=== PATIENT | female | born 1940 | race Hispanic/Latino ===

== ENCOUNTER 2017-01-09 12:57 | Inpatient (IN) | payer MEDICARE, OTHER ==
[2017-01-09 13:07] VITALS: BMI 24.0
--- NOTE | 2017-01-09 13:43 | CT ---
PROCEDURE: CT HEAD WITHOUT CONTRAST. HISTORY: Code Stroke COMPARISON: None available. TECHNIQUE: Axial computed tomography images were obtained through the head/brain without intravenous contrast. Radiation dose: Total exam DLP = 774.23 mGy-cm. This CT exam was performed using one or more of the following dose reduction techniques: Automated exposure control, adjustment of the mA and/or kV according to patient size, and/or use of iterative reconstruction technique. FINDINGS: HEMORRHAGE: No intracranial hemorrhage. BRAIN: No mass effect or edema. Atherosclerotic calcifications. Scattered periventricular and subcortical white matter hypodensities, which are nonspecific, but often seen with chronic microvascular ischemic disease. Please note that MRI with diffusion imaging is more sensitive in the detection of acute ischemic event. VENTRICLES: No hydrocephalus. CALVARIUM: Unremarkable. PARANASAL SINUSES: Unremarkable as visualized. No significant inflammatory changes. MASTOID AIR CELLS: Unremarkable as visualized. No inflammatory changes. OTHER FINDINGS: None. IMPRESSION: Scattered periventricular and subcortical white matter hypodensities, which are nonspecific, but often seen with chronic microvascular ischemic disease. Findings discussed with Dr. Mcclellan on 01/09/17 at 1:37 p.m.
--- NOTE | 2017-01-09 13:51 | ED PDOC ---
Arrival/HPI - General Chief Complaint: Syncope Time Seen by Provider: 01/09/17 13:06 Historian: Patient - Critical Care Critical Care Minutes: 30 minutes - History of Present Illness Narrative History of Present Illness (Text): 01/09/17 13:06 A 76 year old female, whose past medical history includes multiple syncopes, was brought in by EMS presents to the emergency department complaining of syncopal episode starting yesterday evening. Patient reports yesterday she experiences left-sided body numbness, which resolved spontaneously. Same episode occurred 07:30 this morning. Patient mentions approximately 10:30 experiencing left leg weakness and afterwards passed out. She states experiencing syncopal episodes x 3 today. Patient denies of any chest pain, shortness of breath, or any other complaints. No PMD Time/Duration: Other (began yesterday evening) Symptom Onset: Sudden Symptom Course: Resolved Context: Home Past Medical History - Provider Review Nursing Documentation Reviewed: Yes - Infectious Disease Hx of Infectious Diseases: None - Cardiac Hx Hypertension: Yes Other/Comment: Aortic tumor - Pulmonary Hx Lung Cancer: Yes - Neurological Hx Syncope: Yes - Psychiatric Hx Substance Use: No Family/Social History - Physician Review Nursing Documentation Reviewed: Yes Family/Social History: No Known Family HX Smoking Status: Never Smoked Hx Alcohol Use: No Hx Substance Use: No Allergies/Home Meds Allergies/Adverse Reactions: Allergies No Known Allergies Allergy (Verified 01/09/17 13:06) Home Medications: Home Meds Medication Instructions Recorded Confirmed Losartan [Cozaar] 1 tab PO DAILY 01/09/17 01/09/17 Review of Systems - Physician Review All systems were reviewed & negative as marked: Yes - Review of Systems Constitutional: absent: Fevers, Night Sweats Respiratory: absent: SOB Cardiovascular: Syncope (3 x today). absent: Chest Pain Gastrointestinal: absent: Abdominal Pain, Diarrhea, Nausea, Vomiting Neurological: Focal Weakness (left leg weakness), Other (left side body numbness yesterday). absent: Headache Physical Exam Vital Signs Reviewed: Yes Vital Signs Temp Pulse Resp BP Pulse Ox 01/09/17 18:25 98.1 F 92 H 17 137/80 99 01/09/17 17:17 97.8 F 93 H 16 156/78 H 99 01/09/17 16:03 97.7 F 99 H 18 163/93 H 98 01/09/17 15:38 97.7 F 97 H 17 150/85 99 01/09/17 14:46 97.8 F 78 17 151/81 H 100 01/09/17 14:17 68 19 154/84 H 01/09/17 13:15 97.7 F 65 17 163/56 H 100 Temperature: Afebrile Blood Pressure: Hypertensive Pulse: Regular Respiratory Rate: Normal Appearance: Positive for: Well-Appearing Pain Distress: None Mental Status: Positive for: Alert and Oriented X 3 Finger Stick Blood Glucose: 120 - Systems Exam Head: Present: Atraumatic, Normocephalic Pupils: Present: PERRL Extroacular Muscles: Present: EOMI Conjunctiva: Present: Normal Mouth: Present: Moist Mucous Membranes Neck: Present: Normal Range of Motion Respiratory/Chest: Present: Clear to Auscultation, Good Air Exchange. No: Respiratory Distress, Accessory Muscle Use Cardiovascular: Present: Regular Rate and Rhythm, Normal S1, S2. No: Murmurs Abdomen: Present: Normal Bowel Sounds. No: Tenderness, Distention, Peritoneal Signs Back: Present: Normal Inspection Upper Extremity: Present: Normal Inspection. No: Cyanosis, Edema Lower Extremity: Present: Normal Inspection. No: Edema Neurological: Present: GCS=15, CN II-XII Intact, Speech Normal, Motor Func Grossly Intact, Normal Sensory Function, Normal Cerebellar Funct, Norm Deep Tendon Reflexes, Gait Normal, Memory Normal, Normal 2Pt Descrimination Skin: Present: Warm, Dry, Normal Color. No: Rashes Psychiatric: Present: Alert, Oriented x 3, Normal Insight, Normal Concentration Medical Decision Making ED Course and Treatment: 01/09/17 13:13 Impression: 76 year old female with syncopal episode. Differential Diagnosis included but are not limited to: Plan: -- EKG -- Head CT -- Head/Neck CTA -- Chest X-ray -- Labs -- Reassess and disposition Progress Notes: 01/09/2017 13:14 Code stroke called for patient. 01/09/2017 13:[address] Hernandez and has requested for CTA head and neck. 01/09/2017 13:23 Patient's blood pressure currently 163/56 01/09/2017 13:[address] FINDINGS: HEMORRHAGE: No intracranial hemorrhage. BRAIN: No mass effect or edema. Atherosclerotic calcifications. Scattered periventricular and subcortical white matter hypodensities, which are nonspecific, but often seen with chronic microvascular ischemic disease. Please note that MRI with diffusion imaging is more sensitive in the detection of acute ischemic event. VENTRICLES: No hydrocephalus. CALVARIUM: Unremarkable. PARANASAL SINUSES: Unremarkable as visualized. No significant inflammatory changes. MASTOID AIR CELLS: Unremarkable as visualized. No inflammatory changes. OTHER FINDINGS: None. IMPRESSION: Scattered periventricular and subcortical white matter hypodensities, which are nonspecific, but often seen with chronic microvascular ischemic disease. Findings discussed with Dr. Mcclellan on 01/09/17 at 1:37 p.m. Dictator : Umu Talbert MD 01/09/2017 14:04 Chest X-ray FINDINGS: Examination limited by habitus and hypoinflation. Soft tissue attenuation limits evaluation of the lung bases. LUNGS: Mild central vascular prominence. No focal consolidation. Please note that chest x-ray has limited sensitivity for the detection of pulmonary masses. PLEURA: No significant pleural effusion identified. No definite pneumothorax . CARDIOVASCULAR: Heart size appears top normal. OSSEOUS STRUCTURES: Osseous demineralization. Degenerative changes. VISUALIZED UPPER ABDOMEN: Unremarkable. OTHER FINDINGS: None. IMPRESSION: Limited study. Mild central vascular prominence. Dictator : Umu Talbert MD EKG: Ordered, reviewed, and independently interpreted the EKG. Rate : 74 BPM Rhythm : NSR Interpretation : No ST-segment elevations or depressions, no T-wave inversions, normal intervals. Comparison : No previous EKG for comparison. 01/09/2017 16:10 Head/Neck CTA FINDINGS: There is minor partially calcified atherosclerotic plaque seen along on the thoracic aorta. The origins of the great vessels are widely patent without significant atherosclerotic disease Both common carotid arteries are also widely patent. Right common carotid artery is patent. . There is mild partially calcified atherosclerotic plaque seen arising along the medial and posterior margins of the right carotid bifurcation extending distally into the posterior proximal margin of the right internal carotid artery. Estimated percent diameter narrowing approximately 40 %. The distal right internal carotid artery is widely patent including the petrous , cavernous and supraclinoid segments. Minimal partially calcified atherosclerotic plaque seen along the cavernous segment. The right A1 and distal A2 branches patent without evidence of occlusion or significant stenosis. Left common carotid artery is widely patent. . There is partially calcified plaque seen along the posterior margin of the left carotid bifurcation extending slightly into the proximal aspect of the left internal carotid artery. . Estimated percent diameter narrowing approximately 70-80 %. Follow- up carotid Doppler recommended to confirm. . . The remaining distal internal carotid artery including the petrous, cavernous and supraclinoid segments are patent however note made of some minimal partially calcified atherosclerotic plaque along left cavernous carotid segment Right vertebral artery is patent. There appears to be narrowing of the proximal right posterior cerebral artery as it arises from the basilar artery. Left vertebral artery gives off the left PICA proximally, just as it pierces the dura. The left vertebral artery becomes smaller in caliber just distal to the left PICA branch. The. The posterior cerebral artery is patent. There is a origin of the right posterior cerebral artery. Distal branches of the posterior cerebral arteries are patent and relatively symmetric. No evidence of large aneurysm nor vascular malformation Multilevel degenerative spondylosis of the cervical spine. Thyroid gland is slightly heterogeneous likely due to crossing streak and beam hardening artifact. Mild biapical pleural thickening and parenchymal scarring. No evidence of apical pneumothorax. There are least 2 small nodular densities seen along the subpleural surface posteriorly margins right lung apex. Recommend followup nonemergent CT scan of the chest for further evaluation Impression: Atherosclerotic plaque changes both carotid bifurcations extending into the proximal internal carotid arteries on more on the left side of estimated percent diameter stenosis between 70 - 80% and on the right approximately 40 %. Followup the carotid Doppler could be performed to confirm. There appears to be narrowing of the origin of the right posterior cerebral artery as it arises from the basilar artery There are least 2 small nodular densities right posterior lung apex. Follow-up nonemergent CT scan of the chest recommended for further evaluation. Dictator : Aroldo Arndt MD 01/09/17 17:[address] Gramajo and requests to give patient another dose of Cozaar. Patient will be admitted to telemetry. - Critical Care Critical Care Minutes: 30 minutes - Lab Interpretations Lab Results: 01/09/17 13:56 01/09/17 13:56 Lab Results 01/09/17 14:02: Blood Type O POSITIVE, Antibody Screen Negative, BBK History Checked No verified bt 01/09/17 13:56: Sodium 141, Potassium 4.7, Chloride 105, Carbon Dioxide 23, Anion Gap 18, BUN 16, Creatinine 0.9, Est GFR ( Amer) > 60, Est GFR (Non- Af Amer) > 60, Random Glucose 101, Calcium 9.8, Total Bilirubin 0.6, AST 28, ALT 21, Alkaline Phosphatase 108, Troponin I < 0.01, Total Protein 7.9, Albumin 4.2, Globulin 3.7, Albumin/Globulin Ratio 1.1, Triglycerides 100, Cholesterol 220 H, LDL Cholesterol Direct 136 H, HDL Cholesterol 55 01/09/17 13:56: PT 10.5, INR 0.97, APTT 22.8 L 01/09/17 13:56: WBC 13.8 H, RBC 3.82, Hgb 12.6, Hct 37.0, MCV 96.9, MCH 33.0, MCHC 34.1, RDW 12.6, Plt Count 227, MPV 9.4, Gran % 83.1 H, Lymph % (Auto) 9.4 L , [place] % (Auto) 6.7 H, Eos % (Auto) 0.7 L, Baso % (Auto) 0.1, Gran # 11.44 H, Lymph # 1.3, [place] # 0.9 H, Eos # 0.1, Baso # 0.02 I have reviewed the lab results: Yes - RAD Interpretation Radiology Orders: 01/09/17 13:14 HEAD W/O (CODE STROKE) [CT] Stat CHEST ONE VIEW [RAD] Stat 01/09/17 13:22 CTA HEAD & NECK BUNDLE [CT] Stat 01/09/17 17:10 CHEST W/O CONTRAST [CT] Stat - Medication Orders Current Medication Orders: Acetaminophen (Tylenol 325mg Tab) 650 mg PO Q6H PRN PRN Reason: Fever >100.4 F Aspirin (Ecotrin) 81 mg PO DAILY WILLEM Atorvastatin Calcium (Lipitor) 10 mg PO DIN WILLEM Losartan Potassium (Cozaar) 50 mg PO DAILY WILLEM Nitroglycerin (Nitro-Bid 2% Oint) 1 ea TOP Q4H PRN PRN Reason: accelerated hypertension Discontinued Medications Aspirin (Aspirin) 325 mg PO STAT STA Stop: 01/09/17 17:16 Last Admin: 01/09/17 17:23 Dose: 325 mg Iohexol (Omnipaque 350 150 Ml) Confirm Administered Dose 150 ml .ROUTE .STK-MED ONE Stop: 01/09/17 14:22 Losartan Potassium (Cozaar) 50 mg PO STAT STA Stop: 01/09/17 17:09 Last Admin: 01/09/17 17:26 Dose: Losartan Potassium (Cozaar) 50 mg PO ONCE STA Stop: 01/09/17 19:03 Last Admin: 01/09/17 19:07 Dose: 50 mg NIHSS Scale ([place]) Time Performed: 13:00 - How Severe is the Stoke Baseline Level of Consciousness: 0=Alert LOC to Questions: 0=Both comments correct LOC to commands: 0=Obeys both correctly Best Gaze: 0=Normal Visual: 0=No visual loss Facial: 0=Normal Motor Arm - Left: 0=No drift Motor Arm - Right: 0=No drift Motor Leg - Left: 0=No drift Motor Leg - Right: 0=No drift Limb Ataxia: 0=Absent Sensory: 0=Normal Best Language: 0=No aphasia Dysarthia: 0=Normal articulation Extinction & Inattention (Neglect): 0=Normal, no object Score: 0 Risk Level: No Stroke Risk rTPA Inclusion/Exclusion - Refusal of Treatment Patient Refused Treatment: No - Inclusion Criteria for Altepase Patient is 18 years or Older: Yes The Clinical Diagnosis of Ischemic Stroke That is Causing a Potentially Disabling Neurological Deficit: No Time of Onset is Well Established to be Less Than 270 Minute Before Treatment Would Begin: Yes Risk/Benefit Discussed With Patient/Family Member Present: Yes - Warning to TPA With Conditions Condition: Stroke Serevity Too Mild - Scribe Statement The provider has reviewed the documentation as recorded by the Александр Kaiser Provider Scribe Attestation: All medical record entries made by the Neymaribanahi were at my direction and personally dictated by me. I have reviewed the chart and agree that the record accurately reflects my personal performance of the history, physical exam, medical decision making, and the department course for this patient. I have also personally directed, reviewed, and agree with the discharge instructions and disposition. Disposition/Present on Arrival - Present on Arrival Any Indicators Present on Arrival: No History of DVT/PE: No History of Uncontrolled Diabetes: No Urinary Catheter: No History of Decub. Ulcer: No History Surgical Site Infection Following: None - Disposition Have Diagnosis and Disposition been Completed?: Yes Diagnosis: Syncope, TIA (transient ischemic attack) Disposition: HOSPITALIZED Disposition Time: 16:15 Condition: FAIR ED Critical Care Documentation - Critical Care Total Time (mins): 30 Documented critical care: time excludes all time spent performing seperately billable procedures.
[2017-01-09 14:04] LABS: BASO # 0.02 K/mm3 (0.0-2.0); BASO % 0.1 % (0.0-3.0); EOS # 0.1 (0.0-0.7); EOS % 0.7 % (1.5-5.0); GRAN # 11.44 (1.4-6.5); GRAN % 83.1 % (50.0-68.0); LYMPH # 1.3 (1.2-3.4); LYMPH % 9.4 % (22.0-35.0); MEAN CELL VOLUME 96.9 fl (80.0-105.0); MEAN CORPUSCULAR HGB CONC 34.1 g/dl (31.0-37.0); MEAN PLATELET VOLUME 9.4 fl (7.0-11.0); MONO # 0.9 (0.1-0.6); MONO % 6.7 % (1.0-6.0); RED CELL DISTRIBUTION WIDTH 12.6 % (11.5-14.5); WHITE BLOOD COUNT 13.8 10^3/ul (4.5-11.0)
--- NOTE | 2017-01-09 14:06 | RAD ---
HISTORY: code stroke COMPARISON: None available. TECHNIQUE: Chest, one view. FINDINGS: Examination limited by habitus and hypoinflation. Soft tissue attenuation limits evaluation of the lung bases. LUNGS: Mild central vascular prominence. No focal consolidation. Please note that chest x-ray has limited sensitivity for the detection of pulmonary masses. PLEURA: No significant pleural effusion identified. No definite pneumothorax . CARDIOVASCULAR: Heart size appears top normal. OSSEOUS STRUCTURES: Osseous demineralization. Degenerative changes. VISUALIZED UPPER ABDOMEN: Unremarkable. OTHER FINDINGS: None. IMPRESSION: Limited study. Mild central vascular prominence.
[2017-01-09 14:16] LABS: INR 0.97 (0.93-1.08); PARTIAL THROMBOPLASTIN TIME 22.8 Seconds (23.7-30.8)
[2017-01-09 14:17] LABS: ALB/GLOB RATIO 1.1 (1.1-1.8); ALKALINE PHOSPHATASE 108 U/L (38-126); ALT/SGPT 21 U/L (7-56); AST/SGOT 28 U/L (14-36); BILIRUBIN,TOTAL 0.6 mg/dL (0.2-1.3); BLOOD UREA NITROGEN 16 mg/dL (7-21); CALCIUM 9.8 mg/dL (8.4-10.5); CARBON DIOXIDE 23 mmol/L (21-33); CHLORIDE 105 mmol/L (98-107); CHOLESTEROL 220 mg/dL (130-200); GFR AFRICAN-AMERICAN > 60; GLUCOSE,RANDOM 101 mg/dL (70-110); POTASSIUM 4.7 mmol/L (3.6-5.0); SODIUM 141 mmol/L (132-148); TOTAL PROTEIN 7.9 g/dL (5.8-8.3)
[2017-01-09 14:32] LABS: TROPONIN I < 0.01 ng/mL
--- NOTE | 2017-01-09 15:42 | CP.PCM.PN ---
Subjective - Date & Time of Evaluation Date of Evaluation: 01/09/17 Time of Evaluation: 13:25 - Subjective Subjective: Patient seen and evaluated at bedside after code stroke was called Objective - Vital Signs/Intake and Output Vital Signs (last 24 hours): Temp Pulse Resp BP Pulse Ox 97 H 19 150/85 01/09/17 15:38 01/09/17 14:17 01/09/17 15:38 - Labs Labs: 01/09/17 13:56 01/09/17 13:56 PT 10.5 Seconds (9.9-11.8) 01/09/17 13:56 INR 0.97 (0.93-1.08) 01/09/17 13:56 APTT 22.8 Seconds (23.7-30.8) L 01/09/17 13:56 NIHSS Stroke Scale - Date/Time Evaluation Performed Date Performed: 01/09/17 Time Performed: 13:25 When Was NIHSS Performed: Code Stroke - How Severe is the Stroke Level of Consciousness: 0=Alert LOC to Questions: 0=Both comments correct LOC to commands: 0=Obeys both correctly Best Gaze: 0=Normal Visual: 1=Partial hemianopia Facial: 0=Normal Motor Arm - Left: 0=No drift Motor Arm - Right: 0=No drift Motor Leg - Left: 0=No drift Motor Leg - Right: 0=No drift Limb Ataxia: 0=Absent Sensory: 0=Normal Best Language: 0=No aphasia Dysarthia: 0=Normal articulation Extinction & Inattention (Neglect): 0=Normal, no object Score: 1 Severity Of Stroke: 1-4 = Minor Stroke
--- NOTE | 2017-01-09 16:12 | CT ---
PROCEDURE: CT angio of the neck and brain dated 01/09/2017 HISTORY: Code stroke. COMPARISON: Correlation made with prior noncontrast CT scan brain obtained earlier same day TECHNIQUE: Contiguous helical/transaxial images of the neck were obtained from the level of the skull-base to the superior mediastinum in the arteriographic phase of enhancement (CTA protocol). Coronal and sagittal reformats or also generated. IV contrast dose: 150 cc Omnipaque 350 Radiation Dose - DLP: 411.11 mGy-cm This CT exam was performed using one or more of the following dose reduction techniques: Automated exposure control, adjustment of the mA and/or kV according to patient size, and/or use of iterative reconstruction technique. . FINDINGS: There is minor partially calcified atherosclerotic plaque seen along on the thoracic aorta. The origins of the great vessels are widely patent without significant atherosclerotic disease Both common carotid arteries are also widely patent. Right common carotid artery is patent. . There is mild partially calcified atherosclerotic plaque seen arising along the medial and posterior margins of the right carotid bifurcation extending distally into the posterior proximal margin of the right internal carotid artery. Estimated percent diameter narrowing approximately 40 %. The distal right internal carotid artery is widely patent including the petrous , cavernous and supraclinoid segments. Minimal partially calcified atherosclerotic plaque seen along the cavernous segment. The right A1 and distal A2 branches patent without evidence of occlusion or significant stenosis. Left common carotid artery is widely patent. . There is partially calcified plaque seen along the posterior margin of the left carotid bifurcation extending slightly into the proximal aspect of the left internal carotid artery. . Estimated percent diameter narrowing approximately 70-80 %. Follow-up carotid Doppler recommended to confirm. . . The remaining distal internal carotid artery including the petrous, cavernous and supraclinoid segments are patent however note made of some minimal partially calcified atherosclerotic plaque along left cavernous carotid segment Right vertebral artery is patent. There appears to be narrowing of the proximal right posterior cerebral artery as it arises from the basilar artery. Left vertebral artery gives off the left PICA proximally, just as it pierces the dura. The left vertebral artery becomes smaller in caliber just distal to the left PICA branch. The. The posterior cerebral artery is patent. There is a origin of the right posterior cerebral artery. Distal branches of the posterior cerebral arteries are patent and relatively symmetric. No evidence of large aneurysm nor vascular malformation Multilevel degenerative spondylosis of the cervical spine. Thyroid gland is slightly heterogeneous likely due to crossing streak and beam hardening artifact. Mild biapical pleural thickening and parenchymal scarring. No evidence of apical pneumothorax. There are least 2 small nodular densities seen along the subpleural surface posteriorly margins right lung apex. Recommend followup nonemergent CT scan of the chest for further evaluation Impression: Atherosclerotic plaque changes both carotid bifurcations extending into the proximal internal carotid arteries on more on the left side of estimated percent diameter stenosis between 70 - 80% and on the right approximately 40 %. Followup the carotid Doppler could be performed to confirm. There appears to be narrowing of the origin of the right posterior cerebral artery as it arises from the basilar artery There are least 2 small nodular densities right posterior lung apex. Follow-up nonemergent CT scan of the chest recommended for further evaluation.
[2017-01-09] MEDS ORDERED: Nitroglycerin 2% Ointment Foilpak UD TOP PRN (17:13)
--- NOTE | 2017-01-09 19:13 | CT ---
EXAM: CT Chest Without Intravenous Contrast EXAM DATE/TIME: 01/09/2017 5:10 PM CLINICAL HISTORY: The patient age is 76 years old and is female; Signs and symptoms; Other: Syncope; Prior surgery; Surgery date: 6+ months; Patient HX: Compare to chest xray R/O apex nodules Facility exam id and description: Ct chests chest w/o contrast TECHNIQUE: Axial computed tomography images of the chest without intravenous contrast. All CT scans at this facility use one or more dose reduction techniques, viz.: automated exposure control; ma/kV adjustment per patient size (including targeted exams where dose is matched to indication; i.e. head); or iterative reconstruction technique. MIP reconstructed images were created and reviewed. Coronal and sagittal reformatted images were created and reviewed. COMPARISON: DX - CHEST ONE VIEW 01/09/2017 1:26:57 PM FINDINGS: Lungs: Small calcified nodular densities are seen at the right pulmonary apex. This is better visualized on current CT images compared to the prior x-ray. There is a pleurally based band of calcification within the left lower lung zone. This can be associated with asbestos exposure. There is biapical parenchymal scarring. Within the right upper lobe of the lung on series 2 image 31, there is a 4 mm nodule. Within the right middle lobe of the lung on series 2 image 60, there is a 1 cm nodule. Atelectatic changes and peripheral fibrotic changes are visualized within the lungs bilaterally. Series 2 image 32 within the left upper lobe, there is a 3-4 mm nodule. Pleural space: No pneumothorax. No significant effusion. Heart: There is a small pericardial effusion. There is coronary artery calcification. No cardiomegaly. Mediastinum: There is a small hiatal hernia, with wall thickening of the distal esophagus. Bones/joints: Hypertrophic degenerative changes are noted within the spine. Osteopenia. There is increased concavity of the superior T12 endplate, likely representing a Schmorl's node. 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 Lymph nodes: Scattered mediastinal lymph nodes are identified, a few which are borderline enlarged. A precarinal lymph node measures 1.3 x 1.0 cm. Within the AP window, there is a 1.0 x 0.8 cm lymph node. A mildly enlarged subcarinal lymph node is also visualized. These lymph nodes are nonspecific as to etiology. IMPRESSION: 1. Small calcified nodular densities are seen at the right pulmonary apex. This is better visualized on current CT images compared to the prior x-ray. 2. There is a pleurally based band of calcification within the left lower lung zone. This can be associated with asbestos exposure. 3. Several pulmonary nodules are noted above, with a 1 cm nodule in the right middle lobe of the lung. PET/CT is recommended to exclude malignancy. 4. Atelectatic changes and peripheral fibrotic changes are visualized within the lungs bilaterally. 5. Borderline enlarged mediastinal lymph nodes are visualized. 6. There is a small hiatal hernia, with wall thickening of the distal esophagus. 7. 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 8. There is a small pericardial effusion.
[2017-01-10] MEDS ORDERED: Succinylcholine 200 mg/10 ml Inj IV ONE (00:28)
[2017-01-10] MEDS ORDERED: Etomidate 20 mg/10ml Inj IV ONE (00:28)
--- NOTE | 2017-01-10 00:49 | HP ---
HISTORY OF PRESENT ILLNESS: This is a 76-year-old female who was examined at her bedside in the presence of her nurse and her . The patient was en route to a [place] cruise and was starting to board the cruise ship in [place], [place], when she experienced left-sided body numbness followed by weakness and a syncopal episode. The patient stated last evening while still in her home in [facility], she experienced some numbness in her left leg, this resolved, but recurred today when she was boarding the ship and was accompanied by numbness, weakness, and a syncopal episode. Her brought her to the [facility] ER for further evaluation of the above, and the patient is now admitted, awaiting neurological evaluation. In the emergency room, she underwent a head CT that showed scattered periventricular and subcortical white matter hypodensities which are nonspecific, but often seen with chronic microvascular ischemic disease. The patient's case was discussed by emergency room physician, Dr. Rolando Cotter with on-call neurologist, Dr. Hernandez, who recommended a CTA, a CAT scan angiogram of the head and neck. This was completed in the emergency room and showed 2 small nodular densities in her right posterior lung apex for which a non-emergent CT of the chest was recommended for further evaluation, and the patient was also noted to have atherosclerotic plaque changes in both carotid bifurcations extending into the proximal internal carotid arteries, more on the left side with an estimated stenosis between 70 to 80% on the left and 40% on the right. At present, a consultation with Dr. Hernandez, neurologist is pending. On further discussion with the patient, she states she has a longstanding history of chronic hypertension, is status post lung cancer resection approximately 5 years ago. When discussing her pulmonary nodules noted on CT, the patient states she has had chronic pulmonary nodules that are under repeated followup with her oncologist at the [facility] where she goes for her oncological care. Of note, the patient also had a mild leukocytosis in the emergency room with her white count being 13,800 in the absence of any obvious fever or infection, and the patient states this is a chronic issue as well that both she and her physicians in [place] are aware of. THE PATIENT DENIES ANY ALLERGIES TO MEDICATIONS. 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 The patient is retired. ALLERGIES: SHE HAS NO KNOWN ALLERGIES TO MEDICATIONS. OUTPATIENT MEDICATIONS: Includes Cozaar 50 mg p.o. daily. FAMILY HISTORY: Significant in that her mother at age 94 of old age and her father had a history of chronic hypertension. She denies any smoking history. REVIEW OF SYSTEMS: Head review, no knowledge of previous stroke. Eye review, no change in visual acuity. Ear review, no hearing loss. Throat review, no swallowing difficulty. Neck review, no stiffness. Cardiac review, chronic hypertension. She denies any knowledge of heart attack in her past. She states she had an echocardiogram in the last year or so that was reportedly unremarkable. Pulmonary, she has chronic pulmonary nodules and stated she had a PET CT a few years ago that was reportedly unremarkable. GI, denies hematemesis, melena. , denies dysuria. Skin, denies rash. Vascular, denies claudication. Psychological, denies any knowledge of depression. Neurological, denies any knowledge of stroke. PHYSICAL EXAMINATION VITAL SIGNS: The patient is in a normal sinus rhythm on the monitor. Temperature 98.1, respirations 17, pulse 92, blood pressure 137/80 with a pulse ox of 99% on room air. HEENT: Head is normocephalic and atraumatic. Eyes, no icterus. Ears, clear. Throat, noninjected. NECK: Supple. HEART: Regular, S1 and S2. No pathological rubs, murmurs, or gallops. LUNGS: Clear. ABDOMEN: Soft. EXTREMITIES: No edema. SKIN: Without rash. NEUROLOGICAL: Grossly intact. Motor strength 5/5, both arms, both legs. VASCULAR: Legs warm to touch. LABORATORY DATA: White count 13,800, hemoglobin 12.6, hematocrit 37.0, platelets 227,000. PT/INR 0.97, PTT 22.8. Sodium 141, potassium 4.7, chloride 105, bicarb 23, BUN 16, creatinine 0.9. Random blood sugar 109. Bilirubin 0.6, AST 28, ALT 21, alkaline phosphatase 108. Triglycerides 100, cholesterol 220, LDL 136, and HDL 55. Chest x-ray showed mild central vascular prominence. No focal consolidation. EKG reportedly showed normal sinus rhythm. Head CT and head and neck CTA as previously reported. IMPRESSION: A 76-year-old female with recurrent numbness and syncopal attack associated with left-sided weakness, rule out transient ischemic attack, rule out stroke in evolution. Also with hyperlipidemia, hypertension, history of pulmonary nodules, history of lung resection for lung cancer, and also history of aortic tumor removal with history of benign leukocytosis. PLAN: At present is to admit this patient to the cardiac unit. She will have a blood and urine culture obtained for completeness sake. A repeat CBC will be ordered for the a.m., and the patient will be prescribed Cozaar 50 mg p.o. daily, Ecotrin 81 mg p.o. daily, Lipitor 10 mg p.o. at dinnertime, and nitroglycerin to chest wall p.r.n. accelerated hypertension. She will be maintained on a heart healthy diet. Consultation with neurology has been requested. Hemoglobin A1c has been ordered. The patient has been advised all of the above, and she agrees that when cleared for discharge, she will follow up the issues of leukocytosis, hyperlipidemia, pulmonary nodules and recommendation for a PET CT with her primary care physician and oncologist when she returns home. The was advised of this and he is aware and in agreement with these recommendations as well, and the need for heart healthy diet and monitoring of her cholesterol, on Lipitor. The patient was also advised to take copies of all of her radiological reports for further review with her physicians at the [facility], and the patient and said they would be compliant with this recommendation. I have ordered a CT of the chest for completeness sake, and I will ask them to review this with her oncologist and primary care physicians upon her return home as well. Greater than 60 minutes was spent in care and management of this patient today. Joyce Gramajo MD MTDManjit
[2017-01-10 07:13] LABS: HEMATOCRIT 35.2 % (36.0-48.0); MEAN CORPUSCULAR HEMOGLOBIN 32.2 pg (25.0-35.0); MEAN CORPUSCULAR HGB CONC 33.2 g/dl (31.0-37.0); MEAN PLATELET VOLUME 9.5 fl (7.0-11.0); RED CELL DISTRIBUTION WIDTH 12.8 % (11.5-14.5)
--- NOTE | 2017-01-10 07:29 | CARD ---
APPROVED REPORT EKG Measurement Heart [id number] <Conclusion> Normal sinus rhythm Incomplete left bundle branch block T wave abnormality, consider inferolateral ischemia Abnormal ECG
--- NOTE | 2017-01-10 11:52 | CP.PCM.CON ---
History of Present Illness - History of Present Illness History of Present Illness: Mrs. Ramon is a 76-year-old woman with a past medical history of syncopal episodes that are described as vaso-vagal in origin (usually after a stressful event). She had another episode of syncope yesterday evening. This was not as concerning to her as the left side numbness that she experienced, with subsequent left leg weakness that lasted for about 15 minutes and she then had another episode yesterday morning. 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 She was loaded with plavix and continued on aspirin and an MRI of the brain was ordered and is now pending. Review of Systems - Review of Systems All systems: reviewed and no additional remarkable complaints except Past Patient History - Infectious Disease Hx of Infectious Diseases: None - Past Social History Smoking Status: Never Smoked - CARDIAC Hx Hypertension: Yes Other/Comment: Aortic tumor - PULMONARY Hx Lung Cancer: Yes - NEUROLOGICAL Hx Syncope: Yes - MUSCULOSKELETAL/RHEUMATOLOGICAL Hx Falls: Yes - PSYCHIATRIC Hx Substance Use: No - SURGICAL HISTORY Hx Surgeries: Yes Meds Allergies/Adverse Reactions: Allergies Allergy/AdvReac Type Severity Reaction Status Date / Time No Known Allergies Allergy Verified 01/09/17 13:06 - Medications Medications: Current Medications Acetaminophen (Tylenol 325mg Tab) 650 mg PO Q6H PRN PRN Reason: Fever >100.4 F Aspirin (Ecotrin) 81 mg PO DAILY [facility] Last Admin: 01/10/17 10:00 Dose: 81 mg Atorvastatin Calcium (Lipitor) 40 mg PO DIN WILLEM Clopidogrel Bisulfate (Plavix) 75 mg PO DAILY [facility] Losartan Potassium (Cozaar) 50 mg PO DAILY [facility] Last Admin: 01/10/17 10:00 Dose: Not Given Nitroglycerin (Nitro-Bid 2% Oint) 1 ea TOP Q4H PRN PRN Reason: accelerated hypertension Physical Exam - Constitutional Appears: Well - Head Exam Head Exam: ATRAUMATIC, NORMAL INSPECTION, NORMOCEPHALIC - Eye Exam Eye Exam: EOMI, Normal appearance, PERRL - ENT Exam ENT Exam: Mucous Membranes Moist, Normal Exam - Neck Exam Neck exam: Positive for: Normal Inspection - Respiratory Exam Respiratory Exam: Clear to Auscultation Bilateral, NORMAL BREATHING PATTERN - Cardiovascular Exam Cardiovascular Exam: REGULAR RHYTHM, +S1, +S2 - GI/Abdominal Exam GI & Abdominal Exam: Normal Bowel Sounds, Soft. absent: Tenderness - Rectal Exam Rectal Exam: Deferred - Extremities Exam Extremities exam: Positive for: normal inspection - Back Exam Back exam: NORMAL INSPECTION - Neurological Exam Neurological exam: Alert, CN II-XII Intact, Normal Gait, Oriented x3, Reflexes Normal Additional comments: Right upper extremity pronator drift. Reflexes are normal. Romberg is normal. Gait is normal. - Psychiatric Exam Psychiatric exam: Normal Affect, Normal Mood - Skin Skin Exam: Dry, Intact, Normal Color, Warm Results - Vital Signs Recent Vital Signs: Last Vital Signs Temp 98.1 F 01/10/17 05:41 Pulse 85 01/10/17 10:00 Resp 20 01/10/17 05:41 BP 146/73 01/10/17 10:00 Pulse Ox 97 01/10/17 05:41 - Labs Result Diagrams: 01/10/17 06:44 01/09/17 13:56 Labs: Laboratory Results - last 24 hr 01/09/17 01/10/17 01/10/17 21:40 06:44 06:44 WBC 8.0 D RBC 3.63 Hgb 11.7 L Hct 35.2 L MCV 97.0 MCH 32.2 MCHC 33.2 RDW 12.8 Plt Count 228 MPV 9.5 POC Glucose (mg/dL) 109 Blood Type Confirm O POSITIVE 01/10/17 01/10/17 07:16 11:09 WBC RBC Hgb Hct MCV MCH MCHC RDW Plt Count MPV POC Glucose (mg/dL) 85 90 Blood Type Confirm Assessment & Plan (1) TIA (transient ischemic attack) Assessment and Plan: The left ICA stenosis would not explain left sided numbness; however, on exam she has a right side pronator drift. Will evaluate the MRI/MRA for any ischemic changes in the left hemisphere. Continue aspirin/plavix and statin for intracranial atherosclerotic disease. Fluids with NS at 100 ml/hr. Vascular surgery should be consulted for possible endarterectomy. However, she should also be seen by endovascular surgery if she prefers stenting. If the lesion is more than 80% on MRA of the neck then we should consider treatment and if the LESLIE lesion appears ulcerated, then again we may discuss options. Other causes for the TIA should be evaluated as follows: 1. Telemetry 2. Echocardiogram with bubble study 3. Carotid ultrasound Thank you. Status: Acute
[2017-01-10] MEDS ORDERED: Gadodiamide 287 MG/ML VIAL (15ML) IV ONE (11:55)
--- NOTE | 2017-01-10 13:16 | PN ---
DATE: 01/10/2017 SUBJECTIVE: This is a 76-year-old female who was examined at her bedside in the presence of her and her nurse, Maria L, and the case was discussed in detail with neurologist, Dr. Lester Hernandez. The patient was admitted with a possible transient ischemic attack versus stroke in evolution that manifested with a left-sided upper and lower extremity numbness and weakness that is now improved and the patient has a history of chronic hypertension that is treated with Cozaar. The patient denies any headache, slurred speech, further numbness or weakness. 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 She denies any chest pain, shortness of breath, fever or chills. PHYSICAL EXAMINATION: VITAL SIGNS: Temperature is 98.1, respirations 20, pulse 62 and blood pressure 130/65 with pulse ox of 97% on room air. 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 HEENT: Head is normocephalic and atraumatic. Eyes, no icterus. NECK: Supple. HEART: Regular S1 and S2. LUNGS: Clear. ABDOMEN: Soft. EXTREMITIES: No clubbing, no cyanosis, no edema. SKIN: Without rash. NEUROLOGICAL: Grossly intact. Motor strength 5/5. VASCULAR: Legs warm to touch. LABORATORY DATA: White count of 8000, hemoglobin 11.7, hematocrit 35.2, platelets 228,000. PT/INR 0.97, PTT 22.8. Sodium 141, potassium 4.7, chloride 105, bicarb 23, BUN 16, creatinine 0.9, random blood sugar is 85. Hemoglobin A1c normal 5.9. All liver function testing was normal including bilirubin 0.6, AST 28, ALT 21, and alkaline phosphatase 108. Troponin was less than 0.01. Cholesterol 220, LDL 136, HDL 55 and triglycerides 100. IMPRESSION: A 76-year-old female with transient ischemic attack versus stroke with left-sided numbness, chronic hypertension, hyperlipidemia, history of lung cancer, history of chronic pulmonary nodules and history of intermittent benign leukocytosis. PLAN: As discussed with Dr. Hernandez from neurology is to obtain a MRI of the brain without contrast to rule out stroke. The patient will continue on Cozaar 50 mg p.o. daily, Ecotrin 81 mg p.o. daily, Lipitor 40 mg p.o. at dinner, Plavix 75 mg p.o. daily and nitroglycerin 1 inch to chest wall q. 4 hours p.r.n accelerated hypertension if her systolic blood pressure should be greater than 160 or diastolic blood pressure is greater than 100. She continues on a heart-healthy diet. She will remain on the cardiac unit. She has blood and urine cultures pending and the patient has been advised by neurology that she may need either carotid artery stenting or carotid endarterectomy given her CTA findings and clinical presentation. The patient will be discussing this with neurology and her plan will be decided in the near future. The patient was re-advised to take her CT of the chest results to her primary care physician and her oncology physicians upon discharge. Both she and her were advised the radiologist at [facility] has advised a PET/CT regarding these findings. Approximately sixty minutes were spent in the care and management of this patient today. Joyce Gramajo MD MTDManjit
--- NOTE | 2017-01-10 13:51 | MRI ---
PROCEDURE: MRI BRAIN WITHOUT CONTRAST HISTORY: possible stroke COMPARISON: Head CT 01/09/2017. TECHNIQUE: Multiplanar, multisequence MR images of the brain were obtained without intravenous contrast enhancement. FINDINGS: HEMORRHAGE: None DWI: Acute separate infarct is appreciated at a segment the right PULPER OPERATOR distribution affecting the inferior right occipital lobe only. BRAIN PARENCHYMA: Minimal local mass effect is seen the right occipital lobe with the remainder the brain unremarkable in terms of mass effect. Expanded ventricular sulcal and cisternal spaces are identified compatible diffuse cerebral atrophy and chronic microangiopathy is manifest by limited periventricular and subcortical/sentence semiovale white matter signal changes. Midline anatomy appears normal with the exception of an empty sella, and there is no midline shift or suspicious extra-axial fluid collection identified. VENTRICLES: Unremarkable. No hydrocephalus. CRANIUM: Unremarkable. ORBITS: Grossly unremarkable. PARANASAL SINUSES/MASTOIDS: Left mastoiditis is noted incidentally VASCULAR SYSTEM: Skull base flow voids intact. OTHER FINDINGS: None. IMPRESSION: Subsegment right PULPER OPERATOR acute or subacute infarction without significant mass effect though sulci are mildly narrowed at the affected right occipital lobe inferiorly. No interval intracranial hemorrhage identified. Age-related neuro degenerative changes are identified.
--- NOTE | 2017-01-10 14:01 | MRI ---
PROCEDURE: Magnetic Resonance Angiography Brain HISTORY: left side numbness COMPARISON: None available. TECHNIQUE: 3D time of flight MR angiography of the intracranial arteries was performed. Rotating maximum intensity projection images were generated. FINDINGS: INTERNAL CEREBRAL ARTERIES: Unremarkable bilateral internal carotid arteries. The skull base, petrous, cavernous and supraclinoid segments are bilaterally widely patient. ANTERIOR CEREBRAL ARTERIES: Unremarkable. A1 and A2 segments are widely patent. Smaller distal branches unremarkable, as visualized. MIDDLE CEREBRAL ARTERIES: Unremarkable. M1 and M2 segments are widely patent. Perisylvian branches grossly symmetric. POSTERIOR CIRCULATION: Basilar Artery: Unremarkable. Distal Vertebral Arteries: Unremarkable. Posterior Cerebral Arteries: Normal left ANALYTICS INTERN. Right ANALYTICS INTERN appears to be persistent origin proximally with more robust distal flow. Differential diagnosis would be a stricture or spasm here. Posterior Inferior Cerebellar Arteries: Not identified. ANEURYSM/ VASCULAR MALFORMATIONS: None. OTHER FINDINGS: None. IMPRESSION: A small proximal right ANALYTICS INTERN is appreciated chest probably persistent origin however an element of spasm or stricture is difficult to exclude here. Robust flow was appreciated distal to this segment and the former is favored. A widely patent right posterior communicating artery is identified which is larger than that on the left. The remainder the exam appears unremarkable. .
--- NOTE | 2017-01-10 14:31 | MRI ---
PROCEDURE: MR Angiography of the neck with and without contrast HISTORY: carotid stenosis COMPARISON: CT angiogram of the neck 01/09/2017. TECHNIQUE: Contrast enhanced and [id number] angiography of the neck was performed. Rotating 3D maximum intensity projection images of the cervical carotid and vertebral arteries were generated. FINDINGS: RIGHT CAROTID ARTERIES: Common Carotid Artery: Normal. Carotid Bifurcation: Mild atherosclerotic plaques identified at the posterior portion of right carotid bulb however no significant stenosis felt to be present which agrees with the CT angiogram 01/09/2017. Stenosis is less than 50 percent. Internal Carotid Artery:Normal. External Carotid Artery (proximal branches): Normal. LEFT CAROTID ARTERIES: Common Carotid Artery: Normal. Carotid Bifurcation: Atherosclerotic plaque at the left carotid bulb narrows the origin of the left internal carotid artery some 50-60 percent as compared to the distal left ICA. Internal Carotid Artery:Moderate proximal stenosis with distal and mid cervical segments widely patent. External Carotid Artery (proximal branches): Normal. VERTEBRAL ARTERIES: Right Vertebral Artery: Normal. Left Vertebral Artery: Normal. OTHER FINDINGS: None. IMPRESSION: Bilateral atherosclerotic plaque at the origins of the internal her artery's results in less than 50 percent stenosis of the proximal right internal carotid artery an approximate 56 percent stenosis of the left the artery. The overall pattern agrees with the source image data from CTA 01/09/2017.
[2017-01-11 00:22] VITALS: RESP 20
[2017-01-11 05:51] VITALS: O2SAT 98
[2017-01-11 12:16] VITALS: BP 161/92; TEMP 98.2
--- NOTE | 2017-01-11 15:27 | PN ---
DATE: 01/11/2017 SUBJECTIVE: A 76-year-old female who was examined at her bedside. Her case was reviewed in detail with herself, her and her nurse Briseyda Rodríguez. The patient is awaiting neurology followup with Dr. Anthony Fermin. On yesterday's brain MRI testing she was found to have a subsegmental right SCALER PACKER acute or subacute infarction without significant mass effect through the sulci affecting the right occipital lobe inferiorly. No intracranial hemorrhage was identified. This was noted on a brain MRI without contrast. The patient completed neck MRI, which showed bilateral atherosclerotic plaque at the origin of the internal carotid arteries resulting in less than 50% stenosis of the right internal carotid artery and approximately of 56% stenosis of the left carotid artery. Head MRA showed a small proximal right SCALER PACKER appreciated probably persistent in origin; however, an element of spasm or stricture was difficult to exclude. Robust flow was appreciated distal to the segment and the former is favored. A wide patent right posterior communicating artery was identified, which is larger than on the left and the remainder of the exam appeared unremarkable. The patient denied any headache, chest pain, shortness of breath, fever or chills and was ambulating independently and denied any motor weakness. 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 PHYSICAL EXAMINATION: VITAL SIGNS: Show temperature 98.2, respirations 20, pulse 90 and blood pressure 131/73 with a pulse ox of 98% on room air. HEENT: Head is normocephalic and atraumatic. Eyes, no icterus. NECK: Supple. HEART: Regular S1 and S2. LUNGS: Clear. ABDOMEN: Soft. EXTREMITIES: No edema. SKIN: Without rash. NEUROLOGICAL: Intact. PSYCHOLOGICAL: Alert, oriented x3. VASCULAR: Legs warm to touch. LABORATORY DATA: White count 8000, hemoglobin 11.7, hematocrit 35.2, and platelets 228,000. PT/INR 0.97, PTT 22.8. Hemoglobin A1c 5.9. Sodium 141, potassium 4.7, chloride 105, bicarb 23, BUN 16, creatinine 0.9, random blood sugar 131. All liver function testing was normal including bilirubin 0.6, AST 28, ALT 21, and alkaline phosphatase 108. Troponin was less than 0.01. Cholesterol 220, LDL 136, HDL 55, and triglycerides 100. IMPRESSION: A 76-year-old female with chronic hypertension, hyperlipidemia, now with MRI evidence of a right brain stroke to explain her left leg weakness now resolved and numbness now improved with neurovascular findings as outlined above. PLAN: The plan at present is to continue Cozaar 50 mg p.o. daily, Ecotrin 81 mg p.o. daily, Lipitor 40 mg p.o. at bedtime, Plavix 75 mg p.o. daily and heart-healthy diet. The patient has blood and urine cultures that showed no growth. She is awaiting neurology followup with Dr. Anthony Fermin. The patient has expressed that she will leave the hospital today to follow up her PMD Dr. Bethanie Alicea regarding additional testing that may be needed and the patient was given copies of head CT, head/neck CTA, chest CT, brain MRI, head MRA, and neck MRA. The patient was clearly advice that she will need to have her chest CT reviewed with her underbaster and that it is recommended she have a PET/CT for followup of her pulmonary nodules. Also, the patient was advised that should she leave today as she is planning since she has neurovascular appointment with Dr. Kee, a neurovascular surgeon in [place], [place], who performed an endarterectomy on her and that appointment for 9:30 a.m. tomorrow Tuesday01/12/2017, that she should review all of the above findings with him and a neurologist as recommended by her PMD. She has been advised that she is recommended to have of a bubble echo test, carotid ultrasounds and hormone levels to further evaluate possibility of an empty sella noted on her brain MRI as well. The patient states she will be compliant with these recommendations, was given copies of all of her reports, is awaiting neurological clearance by Dr. Anthony Fermin and hopefully will be compliant with the above as recommended. She has been advised for any change in signs and symptoms to present directly to closest emergency room should she have any further intervening events. Her was present, as well as her nurse for discussion of all of the above. Prognosis remained stable at present. Greater than fifty minutes was spent in the discussion and management of this patient today. Joyce Gramajo MD [facility] # [id number] IRVIN
[2017-01-11 18:56] VITALS: PULSE 84
--- NOTE | 2017-01-11 22:13 | CP.PCM.PN ---
<Yazan Shafer - Last Filed: 01/11/17 22:38> Subjective - Date & Time of Evaluation Date of Evaluation: 01/11/17 Time of Evaluation: 09:30 - Subjective Subjective: Neurology Progress note for Dr. Fermin service (Covering for Dr. Hernandez) Patient seen and examined at bedside. No acute events overnight. Patient actively walking in the room without acute deficit, anxious to be discharged today so she can follow-up with her Neurologist at home in [facility]. Denies any acute complaints, including shortness of breath, chest pain, nausea/ emesis, dizziness, room-spinning, focal weakness or paresthesias, diarrhea, constipation, or dysuria/hematuria. Objective - Vital Signs/Intake and Output Vital Signs (last 24 hours): Temp Pulse Resp BP Pulse Ox 98.2 F 84 20 161/92 H 98 01/11/17 12:00 01/11/17 18:00 01/11/17 12:00 01/11/17 12:00 01/11/17 05:50 Intake and Output: 01/11/17 01/12/17 18:59 06:59 Intake Total 660 Balance 660 - Labs Labs: 01/10/17 06:44 PT 10.5 Seconds (9.9-11.8) 01/09/17 13:56 INR 0.97 (0.93-1.08) 01/09/17 13:56 APTT 22.8 Seconds (23.7-30.8) L 01/09/17 13:56 - Constitutional Appears: Well, Non-toxic, No Acute Distress - Head Exam Head Exam: ATRAUMATIC, NORMAL INSPECTION, NORMOCEPHALIC - Eye Exam Eye Exam: EOMI, Normal appearance, PERRL. absent: Conjunctival injection, Scleral icterus Pupil Exam: NORMAL ACCOMODATION, PERRL. absent: Fixed, Irregular, Unequal - ENT Exam ENT Exam: Mucous Membranes Moist. absent: Mucous Membranes Dry - Neck Exam Neck Exam: Full ROM. absent: Lymphadenopathy, Tenderness, Thyromegaly - Respiratory Exam Respiratory Exam: Clear to Ausculation Bilateral (except at Left base, where decreased breath sounds at most inferior and lateral region 2/2 prior partial lower lobe resection), NORMAL BREATHING PATTERN. absent: Accessory Muscle Use, Chest Wall Tenderness, Decreased Breath Sounds, Prolonged Expiratory Phase, Rales, Rhonchi, Wheezes, Respiratory Distress, Stridor - Cardiovascular Exam Cardiovascular Exam: REGULAR RHYTHM, RRR, +S1, +S2. absent: Bradycardia, Tachycardia, Irregular Rhythm, JVD, +S4 - GI/Abdominal Exam GI & Abdominal Exam: Soft, Normal Bowel Sounds. absent: Distended, Firm, Rigid , Tenderness, Diminished Bowel Sounds, Hyperactive Bowel Sounds, Hypoactive Bowel Sounds - Extremities Exam Extremities Exam: Full ROM, Normal Capillary Refill, Normal Inspection. absent : Calf Tenderness, Joint Swelling, Pedal Edema, Tenderness - Back Exam Back Exam: NORMAL INSPECTION. absent: CVA tenderness (L), CVA tenderness (R) - Neurological Exam Neurological Exam: Alert, Awake, CN II-XII Intact, Normal Gait, Oriented x3 Neuro motor strength exam: Left Upper Extremity: 5, Right Upper Extremity: 5, Left Lower Extremity: 5, Right Lower Extremity: 5 Additional comments: sensory and motor grossly intact and equal in all extremities no sided-neglect or sensory extinction on testing - Psychiatric Exam Psychiatric exam: Normal Affect, Normal Mood - Skin Skin Exam: Dry, Intact, Normal Color, Warm Assessment and Plan - Assessment and Plan (Free Text) Assessment: This is a 76 yo F with PMH including HTN, lung cancer s/p partial left lower lobe resection (5 yrs prior), aortic tumor s/p resection, chronic pulmonary nodules, chronic leukocytosis believed to be 2/2 prior cancer, and prior syncopal episodes who presented to [facility] with left-sided numbness, LLE paresthesia and dragging, and then syncopal episode. 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 Her syncopal sx are likely 2/2 small proximal right CASE REPAIRER that is probably persistent origin (as per Head MRA). Patient cleared for discharge home on ASA/Plavix/Lipitor only due to already scheduled follow up with Neurology and Vascular Surgery at home ([facility]). Stressed absolute important of follow up and taking medications as prescribed, which patient expressed understanding and agreement with these instructions. Plan: 1) ASA 81mg/Plavix 75mg/Lipitor 40mg PO daily for stroke prevention in setting of prior stroke, known carotid disease, and Cancer hx 2) Follow up with outpatient Neurology immediately and with Vascular Surgery for L-ICA CEA 3) Would recommend Echo with Bubble study as outpatient to rule out embolization from heart and PFO Neurological stable at time of discharge, confirmed with extensive exam. Patient only cleared for discharge due to scheduled follow-up with outpt Neurologist for tomorrow AM (01/12/17). Patient seen, examined, and discussed with attending, Dr. Fermin. <Anthony Fermin - Last Filed: 01/12/17 10:06> Objective - Vital Signs/Intake and Output Vital Signs (last 24 hours): Temp Pulse Resp BP Pulse Ox 98.2 F 84 20 161/92 H 98 01/11/17 12:00 01/11/17 18:00 01/11/17 12:00 01/11/17 12:00 01/11/17 05:50 - Labs Labs: 01/10/17 06:44 PT 10.5 Seconds (9.9-11.8) 01/09/17 13:56 INR 0.97 (0.93-1.08) 01/09/17 13:56 APTT 22.8 Seconds (23.7-30.8) L 01/09/17 13:56 Attending/Attestation - Attestation I have personally seen and examined this patient.: Yes I have fully participated in the care of the patient.: Yes I have reviewed all pertinent clinical information, including history, physical exam and plan: Yes
--- NOTE | 2017-01-12 13:59 | DS ---
DISPOSITION: Home. FOLLOWUP: With her PMD, Dr. Bethanie Alicea within 48 hours. Follow up with Dr. Kee at 9:30 a.m. 01/12/2017, neurovascular surgeon in [place], [place]. DISCHARGE DIAGNOSES: Right brain stroke; left arm and leg weakness, resolved; left arm and leg numbness, resolved; chronic hypertension, hyperlipidemia. DISCHARGE DIET: 2-gram sodium heart healthy low cholesterol. DISCHARGE MEDICATIONS: Included: 1. Baby aspirin 1 tablet daily. 2. Cozaar 50 mg p.o. daily. 3. Lipitor 40 mg p.o. at dinner time. 4. Plavix 75 mg p.o. daily. SUMMARY: This 76-year-old female who was on route to a [place] cruise, had boarded the ship, experienced left arm and leg weakness, syncope and numbness and was admitted to [facility] for a right brain stroke. She was seen in neurologic consultation, underwent diagnostic workup with head CT, head and neck CTA, chest CT, brain MRI, head MRI and neck MRA. Copies of all resulting reports were given to patient at the time of discharge, which will be reviewed with her PMD, neurologist and neurovascular surgeon. The results of these reports have been discussed in the previous progress reports and consultation reports. At the time of discharge, temperature was 98.2, respirations 20, pulse 84, and blood pressure 131/73 with a pulse oximetry of 98% on room air. Lab shows white count 8000, hemoglobin 11.7, hematocrit 35.2, platelets 228,000. PT/INR 0.97, PTT 22.8, hemoglobin A1c 5.9, sodium 141, potassium 4.7, chloride 105, bicarb 23, BUN 16, creatinine 0.9, random blood sugar 109. All liver function testing was normal including bilirubin 0.6, AST 28, ALT 21, and alkaline phosphatase 108. Random cholesterol 220, LDL 136. The patient was cleared by neurology for discharge to home given prescriptions as outlined above, is aware of her responsibility for followup as outlined throughout the course of her hospital stay and hopefully, the patient will be compliant with these recommendations. All the above was discussed in detail with the patient, her , the nurse present with myself and neurology, who cleared her for discharge. Prognosis is stable at present. Joyce Gramajo MD [facility] # [id number] IRVIN
== END 2017-01-11 17:45 | disposition home or self-care (01) | DRG 65 ==
LOC: ED 12:57 → ERH 17:14 → 2RNO 18:35
PROVIDERS: ADMIT Internal Medicine; ATTEND Internal Medicine
DX: I63.531 Cerebral infarction due to unspecified occlusion or stenosis of right posterior cerebral artery (principal); G81.94 Hemiplegia, unspecified affecting left nondominant side; I65.23 Occlusion and stenosis of bilateral carotid arteries; I10 Essential (primary) hypertension; E78.5 Hyperlipidemia, unspecified; D72.829 Elevated white blood cell count, unspecified; Z85.118 Personal history of other malignant neoplasm of bronchus and lung; Z79.02 Long term (current) use of antithrombotics/antiplatelets; Z79.82 Long term (current) use of aspirin; Z90.2 Acquired absence of lung [part of]